=== PATIENT | female | born 1950 | race Caucasian/White ===

== ENCOUNTER 2018-02-06 08:54 | Emergency (ER) | payer MEDICARE, BC ==
[~2018-02-06] VITALS: Ht 165.1 cm; Wt 63.5 kg
[~2018-02-06 08:54] MED LIST: LAMO25TA5 PO; OLME40TA12 PO; SERT25TA PO
--- NOTE | 2018-02-06 09:15 | NUR ---
PATIENT CAME FROM HOME DEVELOPED CRAMPING ON RIGHT LEG POST SURGERY ON WEDNESDAY. PATIENT CALLED SURGEON AND INFORMED HER TO COME TO ER TO RULE OUT ANY CLOTS. PATIENT STATES SHE HAS BEEN AMBULATING AND MOBILE POST SURGERY AND CONTINUES TO FEEL CRAMPING ON THE RIGHT LEG
--- NOTE | 2018-02-06 09:18 | NUR ---
PATIENT IN THE ROOM WAITING TO BE SEEN BY THE PHYSICIAN.
[2018-02-06] MEDS ORDERED: ASPI81TA31 PO (09:27)
[2018-02-06] MEDS ORDERED: FAMO-132 PO (09:27)
[2018-02-06] MEDS ORDERED: OXYC30TA86 PO (09:27)
--- NOTE | 2018-02-06 09:32 | NUR ---
DIFFICULT TO FIND PEDAL PULSES.
--- NOTE | 2018-02-06 09:40 | NUR ---
PATIENT SEEN BY DOCTOR HENSON
--- NOTE | 2018-02-06 09:51 | NUR ---
ELEVATOR CONSTRUCTOR ELECTRIC IN THE ROOM FOR TEST.
--- NOTE | 2018-02-06 10:11 | NUR ---
INFORMED DOCTOR THAT US TECH FINISHED THE EXAM AND STATED IT WAS NEGATIVE ON ULTRASOUND.
--- NOTE | 2018-02-06 10:28 | NUR ---
PATIENT LEFT WITHOUT DISCHARGE INSTRUCTIONS GIVEN.
== END 2018-02-06 10:30 | disposition home or self-care (01) ==
LOC: ER 08:54
DX: M79.661 Pain in right lower leg (principal); R22.41 Localized swelling, mass and lump, right lower limb; I10 Essential (primary) hypertension; Z79.82 Long term (current) use of aspirin; Z79.891 Long term (current) use of opiate analgesic; Z79.899 Other long term (current) drug therapy
CPT/HCPCS: 93971; 99284; A4663